=== PATIENT | female | born 1995 | race Caucasian/White ===

== ENCOUNTER 2025-06-21 07:37 | Observation (INO) | payer BC, SELFPAY ==
[2025-06-21 07:58] VITALS: BP 103/71; BMI 23.4
[2025-06-21] MEDS: LR 1000 IV (09:00)
[2025-06-21] MEDS: BRETHINE 250 MCG SC (09:05)
[2025-06-21 09:23] LABS: Hematocrit 33.0 % (37.0-47.0); Hemoglobin 11.3 g/dL (12.0-16.0); Mean Corp Hgb Conc. 34.2 g/dL (33.0-37.0); Mean Corpuscular Volume 91.9 fL (81.0-99.0); Nucleated Red Blood Cells % 0 %; Platelet Count 208 10^3/uL (130-400); Red Cell Dist. Width 13.5 % (11.5-14.5)
== END 2025-06-21 12:19 | disposition home or self-care (01) ==
LOC: LDRP 07:37
PROVIDERS: ADMITTING PHYSICIAN Obstetrics & Gynecology; FAMILY PHYSICIAN Nurse Practitioner Family
DX: O32.1XX0 Maternal care for breech presentation, not applicable or unspecified (principal); Z3A.37 37 weeks gestation of pregnancy
CPT/HCPCS: 59412; 85025; 86850; 86900; 86901

== ENCOUNTER 2025-07-04 05:40 | Inpatient (IN) | payer BC, SELFPAY ==
[2025-07-04 06:13] VITALS: BP 110/73
[2025-07-04 06:22] LABS: Hematocrit 32.6 % (37.0-47.0); Hemoglobin 11.4 g/dL (12.0-16.0); Mean Corp Hgb Conc. 35.0 g/dL (33.0-37.0); Mean Corpuscular Volume 90.8 fL (81.0-99.0); Platelet Count 190 10^3/uL (130-400); Red Cell Dist. Width 13.7 % (11.5-14.5)
[2025-07-04] MEDS: BICITRA 30 ML PO (07:28)
[2025-07-04] MEDS: TYLENOL 975 MG PO (07:28)
[2025-07-04] MEDS: ANCEF 10 IV (07:28)
[2025-07-04] MEDS: TORADOL 15 MG IV ×3 (11:19→22:47)
[2025-07-04] MEDS: PITOCIN 30 UNITS/NSS 500 ML IV (13:44)
[2025-07-04] MEDS: COLACE 100 MG PO (20:35)
[2025-07-05] MEDS: TORADOL 15 MG IV (04:55)
[2025-07-05 05:34] LABS: Hematocrit 31.1 % (37.0-47.0); Hemoglobin 11.0 g/dL (12.0-16.0); Mean Corp Hgb Conc. 35.4 g/dL (33.0-37.0); Mean Corpuscular Volume 90.4 fL (81.0-99.0); Platelet Count 213 10^3/uL (130-400); Red Cell Dist. Width 13.8 % (11.5-14.5)
[2025-07-05] MEDS: PRENATAL PLUS 1 TABLET PO (08:40)
[2025-07-05] MEDS: COLACE 100 MG PO ×2 (08:40→20:21)
--- NOTE | 2025-07-05 09:51 | W.PN.ANS.POP ---
Anesthesia Post Operative
- Anesthesia Post Op Note
Vital Signs Stable-See Nursing Note: Yes
Airway Patent: Yes
Adequate Pain Control: Yes
Change in Mental Status: No
Current Postoperative Nausea & Vomiting: No
Anesthesia Complications: No (no headache, back pain, ambulating without difficulty)
General Anesthetic Recall: No
Unplanned Admission: No
Post Op Hydration Adequate: Yes
[2025-07-05] MEDS: MOTRIN 600 MG PO ×2 (11:26→18:40)
[2025-07-05] MEDS: TYLENOL 650 MG PO (20:37)
[2025-07-05] MEDS: MYLICON 80 MG PO (20:38)
[2025-07-06] MEDS: TYLENOL 650 MG PO ×4 (00:21→19:52)
[2025-07-06] MEDS: MOTRIN 600 MG PO ×4 (00:22→19:52)
[2025-07-06] MEDS: COLACE 100 MG PO ×2 (08:55→19:53)
[2025-07-06] MEDS: PRENATAL PLUS 1 TABLET PO (08:55)
[2025-07-06 15:47] LABS: Syphilis/T. pallidum Ab Reflex Negative (Negative)
[2025-07-07] MEDS: TYLENOL 650 MG PO ×2 (01:56→09:08)
[2025-07-07] MEDS: MOTRIN 600 MG PO ×2 (01:56→09:09)
[2025-07-07] MEDS: PRENATAL PLUS 1 TABLET PO (08:51)
[2025-07-07] MEDS: COLACE 100 MG PO (08:51)
--- NOTE | 2025-07-07 09:39 | W.DS.TRANS ---
DC Summary - Custodial Engineer
-
Discharge Instructions:
Discharge Diagnosis/Procedures , breech presentation
Diet No restrictions
Activity No strenuous activity
Driving Restrictions No driving for 2 weeks
Bathing Restrictions OK to Shower
Instructions:
Stand-Alone Forms: [facility]
Changes to Home Medications: No
Discharge Medications:
DC Medications w/original date entered in [facility]
prenat.vits,fela,[id number] 1 tab PO DAILY Supplement 06/21/25
acetaminophen 325 mg tablet 650 mg (2 x 325 mg) PO Q4HPRN PRN mild pain #1 tab 07/07/25
ibuprofen 600 mg tablet 600 mg PO Q6HPRN PRN cramps #60 tabs 07/07/25
Home Medication Changes
Pending Results: No
--- NOTE | 2025-07-07 09:39 | W.DCSUMMARY ---
Discharge Summary
Discharge Data
Date of Admission: 07/04/25
Date of Discharge: 07/07/25
-
Pending Results: No
Hospital Course
Patient is a 30yo @39.0 weeks who presented to Labor and Delivery on 07/04 for scheduled primary section for breech presentation. She previously had a failed external cephalic version. She underwent primary low transverse
section on 07/04, delivering a viable female . The procedure was uncomplicated. The estimated blood loss was 235cc. On postop day one, she was doing well with no complaints. Her hemoglobin was 11.0. On postop day two, she was doing well with no
concerns. On postop day three, she was meeting all postop milestones and was ready to discharge home. She was tolerating a regular diet, voiding spontaneously, having bowel movements, and had no heavy lochia. Discharge instructions and return
precautions were reviewed and all questions answered prior to discharge. She was instructed to follow up in 2 weeks in the office for an incision check.
Discharge Plan
-
Patient Disposition: Home (Routine Discharge)
Discharge Diagnosis/Procedures: , breech presentation
Condition: Good
Diet: No restrictions
Activity: No strenuous activity
Driving Restrictions: No driving for 2 weeks
Bathing Restrictions: OK to Shower
Stand Alone Forms: [facility]
Referrals:
UNKNOWN - PT DOES,NOT KNOW [Family Provider]
Ronna Ojeda MD [Active, Gynecology] - in two weeks
Prescriptions:
New
acetaminophen 325 mg Tablet
650 mg PO Q4HPRN PRN (Reason: mild pain) Qty: 1 0RF
ibuprofen 600 mg Tablet
600 mg PO Q6HPRN PRN (Reason: cramps) Qty: 60 0RF
Continued
prenat.vits,fela,[id number] Tablet
1 tab PO DAILY
Discharge Orders:
Discharge Patient (As Directed); Ordered 07/07/25
Ordered By: Emely Puentes
Discharge Date and Time
Print Language: CROATIAN
== END 2025-07-07 13:29 | disposition home or self-care (01) | DRG 788 ==
LOC: LDRP 05:40
PROVIDERS: ADMITTING PHYSICIAN Obstetrics & Gynecology
PROC: 10D00Z1 Extraction of Products of Conception, Low, Open Approach (ICD-10-PCS; 2025-07-04)
DX: O32.1XX0 Maternal care for breech presentation, not applicable or unspecified (principal); Z3A.39 39 weeks gestation of pregnancy; Z37.0 Single live birth; O69.81X0 Labor and delivery complicated by cord around neck, without compression, not applicable or unspecified; O77.0 Labor and delivery complicated by meconium in amniotic fluid; Z86.19 Personal history of other infectious and parasitic diseases
CPT/HCPCS: 85027; 86780; 86850; 86900; 86901